=== PATIENT | female | born 1995 | race Caucasian/White ===

== ENCOUNTER 2018-07-06 16:13 | Outpatient (CLI) | payer OTHER ==
[2018-07-06 16:54] LABS: ADD MAN DIFF? NO
[2018-07-06 16:56] LABS: WHITE BLOOD COUNT 6.9 10^3/ul (4.8-10.8)
[2018-07-06 16:56] LABS: BASOPHILS % 0.3 % (0.0-2.0); EOSINOPHILS # 0.1 10^3/ul (0.0-0.5); HEMATOCRIT 33.8 % (37.0-47.0); HEMOGLOBIN 11.7 g/dl (12.0-16.0); LYMPHOCYTES # 1.4 10^3/ul (0.8-2.9); LYMPHOCYTES % 19.8 % (15.0-51.0); MEAN CORPUSCULAR HGB CONC 34.6 g/dl (32.0-37.0); MEAN CORPUSCULAR VOLUME 89.7 fl (82.0-101.0); MEAN PLATELET VOLUME 10.6 fl (7.4-10.4); MONOCYTE # 0.5 10^3/ul (0.3-0.9); MONOCYTES % 6.6 % (0.0-11.0); NEUTROPHIL # 4.9 10^3/ul (1.6-7.5); PLATELET COUNT 228 10^3/UL (140-415); RED BLOOD COUNT 3.77 10^6/ul (4.20-5.40); RED CELL DISTRIBUTION WIDTH 12.9 % (11.5-14.5)
[2018-07-06 17:05] LABS: ADD UMIC YES; UR AMORPHOUS CRYSTAL MODERATE /HPF (NONE SEEN); UR ASCORBIC ACID NEGATIVE (NEGATIVE); UR BILIRUBIN (Dip) NEGATIVE (NEGATIVE); UR BLOOD (Dip) NEGATIVE (NEGATIVE); UR CLARITY CLOUDY (CLEAR); UR COLOR YELLOW (YELLOW); UR GLUCOSE (Dip) NEGATIVE (NEGATIVE); UR KETONES (Dip) NEGATIVE (NEGATIVE); UR LEUKOCYTE ESTERASE (Dip) 2+ Leu/ul (NEGATIVE); UR MUCUS MANY /HPF (NONE SEEN); UR NITRITE (Dip) NEGATIVE (NEGATIVE); UR RBC 3 /HPF (0-5); UR SQUAMOUS EPITHELIAL CELL MODERATE /HPF (FEW); UR TOTAL PROTEIN (Dip) NEGATIVE (NEGATIVE); UR UROBILINOGEN (Dip) 1+ mg/dL (NEGATIVE); UR WBC 4 /HPF (0-5)
[2018-07-06 17:18] LABS: ALANINE AMINOTRANSFERASE 34 IU/L (13-69); ALBUMIN 3.7 g/dl (3.3-4.9); ALBUMIN/GLOBULIN RATIO 1.54; ALKALINE PHOSPHATASE 91 IU/L (42-121); ANION GAP 10 (5-13); ASPARTATE AMINO TRANSFERASE 32 IU/L (15-46); BILIRUBIN,INDIRECT 0.2 mg/dl (0-1.1); BILIRUBIN,TOTAL 0.2 mg/dl (0.2-1.3); BLOOD UREA NITROGEN 5 mg/dl (7-20); CALCIUM 9.1 mg/dl (8.4-10.2); CARBON DIOXIDE 24 mmol/L (21-31); CHLORIDE 105 mmol/L (97-110); CREATININE 0.46 mg/dl (0.44-1.00); Estimated GFR > 60 mL/min (>60); GLUCOSE 88 mg/dl (70-220); POTASSIUM 3.4 mmol/L (3.5-5.1); SODIUM 139 mmol/L (135-144); TOTAL PROTEIN 6.1 g/dl (6.1-8.1)
== END 2018-07-06 19:05 | disposition home or self-care (01) ==
LOC: OBT 16:13 → L-D 16:14 → OBT 19:05
DX: O21.9 Vomiting of pregnancy, unspecified (principal); O26.893 Other specified pregnancy related conditions, third trimester; R19.7 Diarrhea, unspecified; R10.9 Unspecified abdominal pain; Z3A.29 29 weeks gestation of pregnancy
CPT/HCPCS: 76817; 76818; 80053; 81001; 85025

== ENCOUNTER 2018-07-31 05:29 | Inpatient (IN) | payer OTHER ==
[2018-07-31] MEDS: LACTATED RINGER'S 1,000 ML IV ×4 (06:15→22:24)
[2018-07-31 06:37] LABS: ADD MAN DIFF? NO
[2018-07-31 06:38] LABS: WHITE BLOOD COUNT 6.2 10^3/ul (4.8-10.8)
[2018-07-31 06:38] LABS: BASOPHILS % 0.5 % (0.0-2.0); EOSINOPHILS # 0.1 10^3/ul (0.0-0.5); HEMATOCRIT 32.9 % (37.0-47.0); HEMOGLOBIN 11.5 g/dl (12.0-16.0); LYMPHOCYTES # 1.7 10^3/ul (0.8-2.9); LYMPHOCYTES % 27.2 % (15.0-51.0); MEAN CORPUSCULAR HEMOGLOBIN 30.9 pg (29.0-33.0); MEAN CORPUSCULAR VOLUME 88.4 fl (82.0-101.0); MEAN PLATELET VOLUME 10.6 fl (7.4-10.4); MONOCYTE # 0.4 10^3/ul (0.3-0.9); MONOCYTES % 6.2 % (0.0-11.0); NEUTROPHILS % 64.8 % (39.0-77.0); PLATELET COUNT 206 10^3/UL (140-415); RED BLOOD COUNT 3.72 10^6/ul (4.20-5.40); RED CELL DISTRIBUTION WIDTH 13.1 % (11.5-14.5)
[2018-07-31 07:00] LABS: ADD UMIC YES; UR ASCORBIC ACID NEGATIVE (NEGATIVE); UR BACTERIA FEW /HPF (NONE SEEN); UR BILIRUBIN (Dip) NEGATIVE (NEGATIVE); UR BLOOD (Dip) 1+ mg/dL (NEGATIVE); UR CLARITY CLOUDY (CLEAR); UR COLOR YELLOW (YELLOW); UR GLUCOSE (Dip) NEGATIVE (NEGATIVE); UR KETONES (Dip) NEGATIVE (NEGATIVE); UR LEUKOCYTE ESTERASE (Dip) 2+ Leu/ul (NEGATIVE); UR MUCUS MANY /HPF (NONE SEEN); UR NITRITE (Dip) NEGATIVE (NEGATIVE); UR NONSQUAMOUS EPITHELIAL CELL 1 /HPF (NONE SEEN); UR RBC 25 /HPF (0-5); UR SPECIFIC GRAVITY (Dip) 1.024 (1.003-1.030); UR SQUAMOUS EPITHELIAL CELL MANY /HPF (FEW); UR TOTAL PROTEIN (Dip) 1+ mg/dl (NEGATIVE); UR UROBILINOGEN (Dip) 1+ mg/dL (NEGATIVE); UR WBC 15 /HPF (0-5)
[2018-07-31 07:19] LABS: ALANINE AMINOTRANSFERASE 25 IU/L (13-69); ALBUMIN 3.6 g/dl (3.3-4.9); ALBUMIN/GLOBULIN RATIO 1.24; ALKALINE PHOSPHATASE 138 IU/L (42-121); AMYLASE 68 U/L (11-123); ANION GAP 9 (5-13); ASPARTATE AMINO TRANSFERASE 25 IU/L (15-46); BILIRUBIN,INDIRECT 0.4 mg/dl (0-1.1); BILIRUBIN,TOTAL 0.4 mg/dl (0.2-1.3); BLOOD UREA NITROGEN 5 mg/dl (7-20); CALCIUM 8.7 mg/dl (8.4-10.2); CARBON DIOXIDE 22 mmol/L (21-31); CHLORIDE 110 mmol/L (97-110); CREATININE 0.43 mg/dl (0.44-1.00); Estimated GFR > 60 mL/min (>60); GLUCOSE 101 mg/dl (70-220); LIPASE 64 U/L (23-300); POTASSIUM 3.4 mmol/L (3.5-5.1); SODIUM 141 mmol/L (135-144); TOTAL PROTEIN 6.5 g/dl (6.1-8.1)
[2018-07-31] MEDS ORDERED: ACETAMINOPHEN 325 MG TAB PO (08:00)
[2018-07-31] MEDS ORDERED: BUTORPHANOL 2 MG INJ (08:17)
[2018-07-31] MEDS: ONDANSETRON 4 MG INJ IV (08:26)
[2018-07-31] MEDS: BUTORPHANOL 2 MG INJ IV ×2 (08:26→10:18)
[2018-07-31] MEDS ORDERED: CEFTRIAXONE 1 GM INJ IVPB (09:00)
[2018-07-31] MEDS: CEFTRIAXONE 1 GM/NS 50 ML IVPB (10:19)
[2018-07-31] MEDS: FERROUS SULFATE (EC) 325 MG TAB PO (10:20)
[2018-07-31] MEDS: PRENATAL VITAMIN PO (10:20)
[2018-07-31] MEDS: SOD CHLORIDE 0.9% 1,000 ML IV (11:11)
[2018-07-31] MEDS ORDERED: TERBUTALINE 1 MG/ML INJ SC (12:00)
[2018-08-01] MEDS: SOD CHLORIDE 0.9% 1,000 ML IV ×3 (01:23→17:00)
[2018-08-01] MEDS: LACTATED RINGER'S 1,000 ML IV ×2 (06:32→15:46)
[2018-08-01] MEDS: CEFTRIAXONE 1 GM/NS 50 ML IVPB (10:42)
[2018-08-01] MEDS: FERROUS SULFATE (EC) 325 MG TAB PO (10:50)
[2018-08-01] MEDS: PRENATAL VITAMIN PO (10:50)
[2018-08-02] MEDS: LACTATED RINGER'S 1,000 ML IV ×2 (01:49)
[2018-08-02] MEDS: SOD CHLORIDE 0.9% 1,000 ML IV ×2 (03:00→08:44)
[2018-08-02] MEDS: FERROUS SULFATE (EC) 325 MG TAB PO (08:42)
[2018-08-02] MEDS: PRENATAL VITAMIN PO (08:42)
[2018-08-02] MEDS: CEFTRIAXONE 1 GM/NS 50 ML IVPB (11:11)
== END 2018-08-02 13:40 | disposition home or self-care (01) | DRG 833 ==
LOC: OBT 05:29 → PP1 08-01 21:09 → L-D 05:32 → OBT 07:50 → L-D 07:50
DX: O23.00 Infections of kidney in pregnancy, unspecified trimester (principal)
CPT/HCPCS: 36415; 76815; 76817; 76818; 80053; 81001; 82150; 83690; 85025; 87086

== ENCOUNTER 2018-08-04 23:45 | Inpatient (IN) | payer OTHER ==
[2018-08-05] MEDS ORDERED: AL HYDROX/MG HYDROX/SIMETH 30 ML CUP PO (00:30)
[2018-08-05] MEDS: SOD CHLORIDE 0.9% 1,000 ML IV ×4 (01:10→22:06)
[2018-08-05 01:16] LABS: ADD UMIC YES; UR ASCORBIC ACID NEGATIVE (NEGATIVE); UR BILIRUBIN (Dip) NEGATIVE (NEGATIVE); UR BLOOD (Dip) 1+ mg/dL (NEGATIVE); UR CLARITY CLEAR (CLEAR); UR COLOR STRAW (YELLOW); UR GLUCOSE (Dip) NEGATIVE (NEGATIVE); UR KETONES (Dip) NEGATIVE (NEGATIVE); UR LEUKOCYTE ESTERASE (Dip) NEGATIVE Leu/ul (NEGATIVE); UR NITRITE (Dip) NEGATIVE (NEGATIVE); UR RBC 5 /HPF (0-5); UR SPECIFIC GRAVITY (Dip) 1.008 (1.003-1.030); UR TOTAL PROTEIN (Dip) NEGATIVE (NEGATIVE); UR UROBILINOGEN (Dip) NEGATIVE (NEGATIVE); UR WBC 1 /HPF (0-5)
[2018-08-05] MEDS: BUTORPHANOL 2 MG INJ IV (01:17)
[2018-08-05] MEDS: CEFTRIAXONE 1 GM/50 ML (PMX) 50 ML IVPB (02:08)
[2018-08-05] MEDS: ONDANSETRON 4 MG INJ IV (02:17)
[2018-08-05 02:23] LABS: ADD MAN DIFF? NO
[2018-08-05 02:29] LABS: BASOPHILS % 0.2 % (0.0-2.0); EOSINOPHILS # 0.1 10^3/ul (0.0-0.5); EOSINOPHILS % 0.7 % (0.0-7.0); HEMATOCRIT 32.7 % (37.0-47.0); LYMPHOCYTES # 1.8 10^3/ul (0.8-2.9); MEAN CORPUSCULAR HEMOGLOBIN 30.2 pg (29.0-33.0); MEAN CORPUSCULAR HGB CONC 33.6 g/dl (32.0-37.0); MEAN CORPUSCULAR VOLUME 89.8 fl (82.0-101.0); MEAN PLATELET VOLUME 11.1 fl (7.4-10.4); MONOCYTE # 0.6 10^3/ul (0.3-0.9); MONOCYTES % 7.4 % (0.0-11.0); NEUTROPHIL # 6.1 10^3/ul (1.6-7.5); NEUTROPHILS % 70.5 % (39.0-77.0); PLATELET COUNT 252 10^3/UL (140-415); RED BLOOD COUNT 3.64 10^6/ul (4.20-5.40)
[2018-08-05 02:29] LABS: WHITE BLOOD COUNT 8.6 10^3/ul (4.8-10.8)
[2018-08-05 02:54] LABS: ALANINE AMINOTRANSFERASE 24 IU/L (13-69); ALBUMIN 3.4 g/dl (3.3-4.9); ALBUMIN/GLOBULIN RATIO 1.17; ALKALINE PHOSPHATASE 127 IU/L (42-121); ANION GAP 9 (5-13); ASPARTATE AMINO TRANSFERASE 25 IU/L (15-46); BILIRUBIN,INDIRECT 0.4 mg/dl (0-1.1); BILIRUBIN,TOTAL 0.4 mg/dl (0.2-1.3); BLOOD UREA NITROGEN 6 mg/dl (7-20); CALCIUM 8.9 mg/dl (8.4-10.2); CARBON DIOXIDE 23 mmol/L (21-31); CHLORIDE 108 mmol/L (97-110); CREATININE 0.53 mg/dl (0.44-1.00); Estimated GFR > 60 mL/min (>60); GLUCOSE 84 mg/dl (70-220); POTASSIUM 3.8 mmol/L (3.5-5.1); SODIUM 140 mmol/L (135-144); TOTAL PROTEIN 6.3 g/dl (6.1-8.1)
[2018-08-05 02:59] LABS: INR 0.87; PROTIME 11.9 Sec (11.9-14.9); PT RATIO 0.9
[2018-08-05 03:00] LABS: PARTIAL THROMBOPLASTIN TIME 29.7 Sec (23.0-35.0)
[2018-08-05] MEDS: FERROUS SULFATE (EC) 325 MG TAB PO (08:47)
[2018-08-05] MEDS: PRENATAL VITAMIN PO (08:47)
[2018-08-06] MEDS: CEFTRIAXONE 1 GM/50 ML (PMX) 50 ML IVPB (01:25)
[2018-08-06] MEDS: SOD CHLORIDE 0.9% 1,000 ML IV ×3 (06:26→14:01)
[2018-08-06] MEDS: FERROUS SULFATE (EC) 325 MG TAB PO (08:43)
[2018-08-06] MEDS: PRENATAL VITAMIN PO (08:43)
[2018-08-07] MEDS: CEFTRIAXONE 1 GM/50 ML (PMX) 50 ML IVPB (01:37)
[2018-08-07] MEDS: SOD CHLORIDE 0.9% 1,000 ML IV ×3 (04:55→23:29)
[2018-08-07] MEDS: PRENATAL VITAMIN PO (09:30)
[2018-08-07] MEDS: FERROUS SULFATE (EC) 325 MG TAB PO (09:30)
[2018-08-07] MEDS: ACETAMINOPHEN 325 MG TAB PO (23:32)
[2018-08-08] MEDS: CEFTRIAXONE 1 GM/50 ML (PMX) 50 ML IVPB (00:49)
[2018-08-08] MEDS: PRENATAL VITAMIN PO (08:38)
[2018-08-08] MEDS: FERROUS SULFATE (EC) 325 MG TAB PO (08:38)
[2018-08-08] MEDS: SOD CHLORIDE 0.9% 1,000 ML IV ×2 (08:38→16:28)
== END 2018-08-08 21:55 | disposition home or self-care (01) | DRG 833 ==
LOC: OBT 23:45 → PP1 08-07 03:31 → L-D 23:46 → OBT 08-05 00:24 → PP1 08-05 00:24
DX: O23.03 Infections of kidney in pregnancy, third trimester (principal); Z3A.31 31 weeks gestation of pregnancy
CPT/HCPCS: 36415; 72195; 74181; 76775; 80053; 81001; 85025; 85610; 85730; 86850; 86900; 86901; 87086; 96360

== ENCOUNTER 2018-09-20 09:16 | Inpatient (IN) | payer OTHER ==
[2018-09-20] MEDS ORDERED: CARBOPROST 250 MCG INJ IM (09:30)
[2018-09-20] MEDS ORDERED: OXYTOCIN 30 UNITS/LR 500 ML IV ×3 (09:30)
[2018-09-20] MEDS ORDERED: MISOPROSTOL 50 MCG CAPSULE VAG (09:30)
[2018-09-20] MEDS ORDERED: METHYLERGONOVINE 0.2 MG INJ IM (09:30)
[2018-09-20] MEDS ORDERED: LIDOCAINE 1% (MPF) 30 ML INJ INJ (09:30)
[2018-09-20] MEDS ORDERED: IBUPROFEN 600 MG TAB PO (09:30)
[2018-09-20] MEDS ORDERED: MISOPROSTOL 200 MCG TAB PR (09:30)
[2018-09-20] MEDS: LACTATED RINGER'S 1,000 ML IV ×3 (10:29→20:57)
[2018-09-20 11:31] LABS: ADD MAN DIFF? NO
[2018-09-20 11:33] LABS: WHITE BLOOD COUNT 8.2 10^3/ul (4.8-10.8)
[2018-09-20 11:33] LABS: BASOPHILS % 0.4 % (0.0-2.0); EOSINOPHILS # 0.1 10^3/ul (0.0-0.5); EOSINOPHILS % 1.1 % (0.0-7.0); HEMATOCRIT 34.5 % (37.0-47.0); HEMOGLOBIN 11.7 g/dl (12.0-16.0); LYMPHOCYTES # 1.9 10^3/ul (0.8-2.9); LYMPHOCYTES % 23.6 % (15.0-51.0); MEAN CORPUSCULAR HEMOGLOBIN 30.3 pg (29.0-33.0); MEAN CORPUSCULAR HGB CONC 33.9 g/dl (32.0-37.0); MEAN CORPUSCULAR VOLUME 89.4 fl (82.0-101.0); MEAN PLATELET VOLUME 10.8 fl (7.4-10.4); MONOCYTE # 0.6 10^3/ul (0.3-0.9); MONOCYTES % 6.7 % (0.0-11.0); NEUTROPHIL # 5.6 10^3/ul (1.6-7.5); NEUTROPHILS % 67.7 % (39.0-77.0); PLATELET COUNT 281 10^3/UL (140-415); RED BLOOD COUNT 3.86 10^6/ul (4.20-5.40); RED CELL DISTRIBUTION WIDTH 13.6 % (11.5-14.5)
[2018-09-20 11:57] LABS: INR 0.87; PROTIME 11.9 Sec (11.9-14.9); PT RATIO 0.9
[2018-09-20 11:58] LABS: PARTIAL THROMBOPLASTIN TIME 28.7 Sec (23.0-35.0)
[2018-09-20 12:23] LABS: HEPATITIS B SURFACE ANTIGEN NEGATIVE (NEGATIVE)
[2018-09-20] MEDS: MISOPROSTOL 50 MCG CAPSULE PO (13:05)
[2018-09-20] MEDS: OXYTOCIN 30 UNITS/LR 500 ML IV (20:16)
[2018-09-20] MEDS ORDERED: DIPHENHYDRAMINE 50 MG INJ IV (20:30)
[2018-09-20] MEDS ORDERED: NALOXONE (0.4 MG/ML) INJ IV (20:30)
[2018-09-20] MEDS ORDERED: ONDANSETRON 4 MG INJ IV (20:30)
[2018-09-20 21:57] LABS: RAPID PLASMA REAGIN NONREACTIVE (NR)
[2018-09-21] MEDS: FENTAnyl 2MCG/ML-ROPIV 0.2% 100 ML BAG EPI (03:13)
[2018-09-21] MEDS: LACTATED RINGER'S 1,000 ML IV (06:22)
[2018-09-21] MEDS: OXYTOCIN 30 UNITS/LR 500 ML IV (07:10)
[2018-09-21] MEDS: ACETAMINOPHEN 500 MG TAB PO (07:23)
[2018-09-21 08:07] LABS: ADD MAN DIFF? NO
[2018-09-21 08:15] LABS: BASOPHILS % 0.1 % (0.0-2.0); EOSINOPHILS % 0.1 % (0.0-7.0); HEMATOCRIT 34.9 % (37.0-47.0); HEMOGLOBIN 11.6 g/dl (12.0-16.0); LYMPHOCYTES # 1.3 10^3/ul (0.8-2.9); LYMPHOCYTES % 9.7 % (15.0-51.0); MEAN CORPUSCULAR HEMOGLOBIN 30.2 pg (29.0-33.0); MEAN CORPUSCULAR HGB CONC 33.2 g/dl (32.0-37.0); MEAN CORPUSCULAR VOLUME 90.9 fl (82.0-101.0); MEAN PLATELET VOLUME 10.8 fl (7.4-10.4); MONOCYTE # 0.6 10^3/ul (0.3-0.9); MONOCYTES % 4.3 % (0.0-11.0); NEUTROPHIL # 11.4 10^3/ul (1.6-7.5); NEUTROPHILS % 85.4 % (39.0-77.0); PLATELET COUNT 251 10^3/UL (140-415); RED BLOOD COUNT 3.84 10^6/ul (4.20-5.40); RED CELL DISTRIBUTION WIDTH 13.7 % (11.5-14.5)
[2018-09-21 08:15] LABS: WHITE BLOOD COUNT 13.4 10^3/ul (4.8-10.8)
[2018-09-21] MEDS ORDERED: MISOPROSTOL 200 MCG TAB PR (09:30)
[2018-09-21] MEDS ORDERED: OXYTOCIN 30 UNITS/LR 500 ML IV (09:30)
[2018-09-21] MEDS ORDERED: METHYLERGONOVINE 0.2 MG INJ IM (09:30)
[2018-09-21] MEDS ORDERED: ACETAMINOPHEN 325 MG TAB PO (09:30)
[2018-09-21] MEDS ORDERED: DIBUCAINE 1% 30 GM OINT TOP (09:30)
[2018-09-21] MEDS ORDERED: HYDROCODONE/APAP (5/325) TAB PO (09:30)
[2018-09-21] MEDS ORDERED: CARBOPROST 250 MCG INJ IM (09:30)
[2018-09-21] MEDS: BENZOCAINE 20% 56 ML SPRAY TOP (10:24)
[2018-09-21] MEDS: SENNA/DOCUSATE NA (8.6MG/50MG) TAB PO ×2 (10:24→20:32)
[2018-09-21] MEDS: WITCH HAZEL/GLYCERIN PAD PR (10:25)
[2018-09-21] MEDS: LACTATED RINGER'S 1,000 ML IV* ×2 (11:08→17:01)
[2018-09-21] MEDS: AMPICILLIN/SULB 3 GM/NS (PMX) 100 ML IVPB ×3 (12:17→23:23)
[2018-09-21] MEDS: IBUPROFEN 600 MG TAB PO ×3 (12:17→23:23)
[2018-09-22] MEDS: LACTATED RINGER'S 1,000 ML IV* ×3 (01:01→17:01)
[2018-09-22] MEDS: IBUPROFEN 600 MG TAB PO ×3 (05:32→17:24)
[2018-09-22] MEDS: AMPICILLIN/SULB 3 GM/NS (PMX) 100 ML IVPB ×3 (05:52→17:25)
[2018-09-22 07:52] LABS: ADD MAN DIFF? NO
[2018-09-22 07:59] LABS: BASOPHILS % 0.2 % (0.0-2.0); EOSINOPHILS # 0.1 10^3/ul (0.0-0.5); EOSINOPHILS % 0.9 % (0.0-7.0); HEMATOCRIT 30.2 % (37.0-47.0); HEMOGLOBIN 10.1 g/dl (12.0-16.0); LYMPHOCYTES # 2.1 10^3/ul (0.8-2.9); LYMPHOCYTES % 22.8 % (15.0-51.0); MEAN CORPUSCULAR HEMOGLOBIN 30.4 pg (29.0-33.0); MEAN CORPUSCULAR HGB CONC 33.4 g/dl (32.0-37.0); MEAN PLATELET VOLUME 10.6 fl (7.4-10.4); MONOCYTE # 0.6 10^3/ul (0.3-0.9); MONOCYTES % 5.9 % (0.0-11.0); NEUTROPHIL # 6.5 10^3/ul (1.6-7.5); NEUTROPHILS % 69.7 % (39.0-77.0); PLATELET COUNT 237 10^3/UL (140-415); RED BLOOD COUNT 3.32 10^6/ul (4.20-5.40); RED CELL DISTRIBUTION WIDTH 13.9 % (11.5-14.5)
[2018-09-22 07:59] LABS: WHITE BLOOD COUNT 9.4 10^3/ul (4.8-10.8)
[2018-09-22] MEDS: SENNA/DOCUSATE NA (8.6MG/50MG) TAB PO ×2 (09:06→20:58)
[2018-09-22] MEDS: INFLUENZA VIRUS VACCINE 0.5 ML (DISPENSING) IM* (12:17)
[2018-09-23] MEDS: AMPICILLIN/SULB 3 GM/NS (PMX) 100 ML IVPB ×4 (00:02→18:00)
[2018-09-23] MEDS: IBUPROFEN 600 MG TAB PO ×4 (00:02→18:00)
[2018-09-23] MEDS: LACTATED RINGER'S 1,000 ML IV* ×3 (01:01→15:17)
[2018-09-23 08:15] LABS: ADD MAN DIFF? NO
[2018-09-23 08:20] LABS: BASOPHILS % 0.4 % (0.0-2.0); EOSINOPHILS # 0.2 10^3/ul (0.0-0.5); EOSINOPHILS % 2.5 % (0.0-7.0); HEMATOCRIT 29.7 % (37.0-47.0); LYMPHOCYTES # 2.4 10^3/ul (0.8-2.9); LYMPHOCYTES % 31.6 % (15.0-51.0); MEAN CORPUSCULAR HEMOGLOBIN 30.3 pg (29.0-33.0); MEAN CORPUSCULAR HGB CONC 33.7 g/dl (32.0-37.0); MEAN PLATELET VOLUME 10.7 fl (7.4-10.4); MONOCYTE # 0.5 10^3/ul (0.3-0.9); MONOCYTES % 6.6 % (0.0-11.0); NEUTROPHIL # 4.4 10^3/ul (1.6-7.5); NEUTROPHILS % 58.4 % (39.0-77.0); PLATELET COUNT 237 10^3/UL (140-415); RED CELL DISTRIBUTION WIDTH 13.8 % (11.5-14.5)
[2018-09-23 08:20] LABS: WHITE BLOOD COUNT 7.5 10^3/ul (4.8-10.8)
[2018-09-23] MEDS: DIPHTH/TET/ACEL PERTUSS (ADULT) 0.5 ML VIAL IM* (09:00)
[2018-09-23] MEDS: SENNA/DOCUSATE NA (8.6MG/50MG) TAB PO (11:43)
[2018-09-23] MEDS: MEASLES,MUMPS,RUBELLA VACCINE INJ SC* (11:44)
== END 2018-09-23 19:05 | disposition home or self-care (01) | DRG 807 ==
LOC: PP1 09-21 09:13 → L-D 09:16
PROVIDERS: Obstetrics & Gynecology
PROC: 10E0XZZ Delivery of Products of Conception, External Approach (ICD-10-PCS; principal; 2018-09-21)
DX: O69.81X0 Labor and delivery complicated by cord around neck, without compression, not applicable or unspecified (principal); Z37.0 Single live birth; Z3A.40 40 weeks gestation of pregnancy
CPT/HCPCS: 62319; 76815; 85025; 85610; 85730; 86592; 86850; 86900; 86901; 87040; 87086; 87340; 90686; 90715